=== PATIENT | male | born 1975 ===

== ENCOUNTER 2018-12-19 15:00 | Emergency (ER) | payer OTHER ==
[2018-12-19 15:38] VITALS: BP 143/89
--- NOTE | 2018-12-19 15:51 | UC ---
Skin Complaint HPI - HPI Summary HPI Summary: 43-year-old male comes in with a chief complaint of an infected right great toe with an ingrown toenail. Patient's had a fungal infection in the great toenail on the right for a long time and is [facility]. The fungal infection is improving with the medications. Recently had a hangnail that was digging into the skin and his he does get out he became infected. He has had some pus drainage. He's been cleaning it with hydrogen peroxide which seems to help. Pain is worse with ambulation and weightbearing. No fevers or chills. No spreading of redness. - History of Current Complaint Chief Complaint: UCLowerExtremity Time Seen by Provider: 12/19/18 15:42 Stated Complaint: TOE INFECTION Pain Intensity: 5 - Allergy/Home Medications Allergies/Adverse Reactions: Allergies Allergy/AdvReac Type Severity Reaction Status Date / Time No Known Allergies Allergy Verified 12/19/18 15:38 Home Medications: Home Medications Fungal Medication 12/19/18 [History] PMH/Surg Hx/FS Hx/Imm Hx Previously Healthy: Yes - Surgical History Surgical History: None - Family History Known Family History: Positive: Non-Contributory - Social History Alcohol Use: None Substance Use Type: None Smoking Status (MU): Current Every Day Smoker Amount Used/How Often: daily/half a can Review of Systems All Other Systems Reviewed And Are Negative: Yes Constitutional: Positive: Negative Skin: Positive: Other - SEE HPI Eyes: Positive: Negative ENT: Positive: Negative Respiratory: Positive: Negative Cardiovascular: Positive: Negative Gastrointestinal: Positive: Negative Motor: Positive: Negative Neurovascular: Positive: Negative Musculoskeletal: Positive: Negative Neurological: Positive: Negative Psychological: Positive: Negative Is Patient Immunocompromised?: No Physical Exam Triage Information Reviewed: Yes Appearance: Well-Appearing, No Pain Distress, Well-Nourished Vital Signs: Initial Vital Signs Temp 97.9 F 12/19/18 15:33 Pulse 65 12/19/18 15:33 Resp 16 12/19/18 15:33 BP 143/89 12/19/18 15:33 Pulse Ox 100 12/19/18 15:33 Vital Signs Reviewed: Yes Eye Exam: Normal Eyes: Positive: Conjunctiva Clear Neck exam: Normal Neck: Positive: Supple Respiratory: Positive: No respiratory distress Musculoskeletal Exam: Normal Musculoskeletal: Positive: Strength Intact, ROM Intact Neurological Exam: Normal Neurological: Positive: Alert, Muscle Tone Normal Psychological Exam: Normal Psychological: Positive: Age Appropriate Behavior Skin: Positive: Other - Right great toe has erythema and swelling on the medial aspect of the toenail. No drainage on my exam. No streaking. Course/Dx - Diagnoses Provider Diagnosis: Ingrown right greater toenail, Paronychia of great toe, right Discharge - Sign-Out/Discharge Documenting (check all that apply): Patient Departure All imaging exams completed and their final reports reviewed: No Studies - Discharge Plan Condition: Stable Disposition: HOME Prescriptions: Cephalexin CAP* [Keflex CAP*] 500 mg PO QID #40 cap Patient Education Materials: Paronychia (ED), Ingrown Nail (ED) Referrals: [facility] [place] [facility] [Outside] Additional Instructions: FOLLOW UP WITH PODIATRY IF NOT COMPLETELY IMPROVED. GET REEVALUATED SOONER IF YOUR CONDITION WORSENS OR ANY QUESTIONS OR CONCERNS. - Billing Disposition and Condition Condition: STABLE Disposition: Home
== END 2018-12-19 16:00 | disposition home or self-care (01) ==
LOC: UCEAST 15:00
DX: L03.031 Cellulitis of right toe (principal); L60.0 Ingrowing nail; F17.290 Nicotine dependence, other tobacco product, uncomplicated
CPT/HCPCS: 99212; G0463